=== PATIENT | male | born 1980 | race Caucasian/White ===

== ENCOUNTER 2019-07-14 11:40 | Emergency (ER) | payer SELFPAY ==
[2019-07-14 11:55] VITALS: BP 131/73; PULSE 67; TEMP 98.3; BMI 26.6
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
== END 2019-07-14 13:37 | disposition home or self-care (01) ==
LOC: JER 11:40 → JERFT 11:40
DX: R07.81 Pleurodynia (principal); Y04.0XXA Assault by unarmed brawl or fight, initial encounter; Y93.89 Activity, other specified; Y92.89 Other specified places as the place of occurrence of the external cause; Y99.8 Other external cause status
CPT/HCPCS: 71111-TC-FY; 99282-25

== ENCOUNTER 2019-08-18 11:22 | Emergency (ER) | payer SELFPAY ==
[2019-08-18 11:26] VITALS: BP 125/79; PULSE 71; TEMP 98.3; BMI 25.8
--- NOTE | 2019-08-18 12:09 | PDOC ---
History of Present Illness - General Chief Complaint: Oral Ulcers Stated Complaint: MOUTH DRYNESS / TONGUE NUMBNESS Time Seen by Provider: 08/18/19 11:38 - History of Present Illness Initial Comments: 08/18/19 12:01 CHIEF COMPLAINT: dry mouth/tongue HISTORY OF PRESENT ILLNESS: 39 yo M with no significant PMH presents to [facility] with concerns of having a "dry tongue" for 1 week. Patient states he has been drinking a lot of water without relief. Denies any other symptoms. No recent travel or sick contacts. PAST MEDICAL HISTORY: Denies past medical history FAMILY HISTORY: Denies SOCIAL HISTORY: Denies tobacco, alcohol, illicit drug use. SURGICAL HISTORY: Denies ALLERGIES: No known drug allergies REVIEW OF SYSTEMS General/Constitutional: Denies fever or chills. Denies weakness, weight change. HEENT: "My tongue feels dry." Denies change in vision. Denies ear pain or discharge. Denies sore throat. Cardiovascular: Denies chest pain or shortness of breath. Respiratory: Denies cough, wheezing, or hemoptysis. Gastrointestinal: Denies nausea, vomiting, diarrhea or constipation. Denies rectal bleeding. Genitourinary: Denies dysuria, frequency, or change in urination. Musculoskeletal: Denies joint or muscle swelling or pain. Denies neck or back pain. Skin and breasts: Denies rash or easy bruising. Neurologic: Denies headache, vertigo, loss of consciousness, or loss of sensation. Psychiatric: Denies depression or anxiety. PHYSICAL EXAM General Appearance: Well-appearing, appropriately dressed. No apparent distress , no intoxication. HEENT: EOMI, PERRLA, normal ENT inspection, normal voice, TMs normal, pharynx normal. No conjunctival pallor. No photophobia, scleral icterus. Neck: Supple. Trachea midline. No tenderness, rigidity, carotid bruit, stridor , lymphadenopathy, or thyromegaly. Respiratory/Chest: Lungs CTAB. No shortness of breath, chest tenderness, respiratory distress, accessory muscle use. No crackles, rales, rhonchi, stridor , wheezing, dullness Cardiovascular: RRR. S1, S2. No JVD, murmur, bradycardia, tachycardia. Vascular Pulses: Dorsalis-Pedis (R): 2+, Dorsalis-Pedis (L): 2+ Gastrointestinal/Abdominal: Normal bowel sounds. Abdomen soft, non-distended. No tenderness or rebound tenderness. No organomegaly, pulsatile mass, guarding , hernia, hepatomegaly, splenomegaly. Lymphatic: No adenopathy, tenderness. Musculoskeletal/Extremities: Normal inspection. FROM of all extremities, normal capillary refill. Pelvis Stable. No CVA tenderness. No tenderness to extremities, pedal edema, swelling, erythema or deformity. Integumentary: Appropriate color, dry, warm. No cyanosis, erythema, jaundice or rash Neurologic: terminal press operator II-XII intact. Fully oriented, alert. Appropriate mood/affect. Motor strength 5/5. No appreciable EOM palsy, facial droop or sensory deficit. Past History - Past Medical History Allergies/Adverse Reactions: Allergies Allergy/AdvReac Type Severity Reaction Status Date / Time No Known Allergies Allergy Verified 08/18/19 11:27 Home Medications: Ambulatory Orders Acyclovir [Zovirax -] 800 mg PO TID #6 tablet 06/26/18 Ibuprofen [Motrin -] 600 mg PO TID #21 tablet 07/14/19 Mag Hydrox/Alh/Smc/Dpha/Lido [Magic Mouthwash *Sjr Formula*] 5 ml MM Q6H #1 bottle 08/18/19 COPD: No DVT: No - Psycho Social/Smoking Cessation Hx Smoking History: Never smoked Hx Alcohol Use: Yes Drug/Substance Use Hx: No Substance Use Type: None *Physical Exam - Vital Signs Last Vital Signs Temp Pulse Resp BP Pulse Ox 98.3 F 71 16 125/79 97 08/18/19 11:24 08/18/19 11:24 08/18/19 11:24 08/18/19 11:24 08/18/19 11:24 Medical Decision Making - Medical Decision Making 08/18/19 12:09 39 yo M with no significant PMH presents to [facility] with concerns of having a "dry tongue" for 1 week. Exam grossly unremarkable. Magic mouthrasta, f/u with ENT Discharge - Discharge Information Problems reviewed: Yes Clinical Impression/Diagnosis: Dry mouth Condition: Stable Disposition: HOME - Admission No - Additional Discharge Information Prescriptions: Mag Hydrox/Alh/Smc/Dpha/Lido [Magic Mouthwash *Sjr Formula*] 5 ml MM Q6H #1 bottle - Follow up/Referral Referrals: Jose Guadalupe Castillo MD [Staff Physician] - - Patient Discharge Instructions Patient Printed Discharge Instructions: DI for Mouth Pain - Post Discharge Activity
== END 2019-08-18 12:34 | disposition home or self-care (01) ==
LOC: JERFT 11:22
DX: R68.2 Dry mouth, unspecified (principal)
CPT/HCPCS: 99281-25